=== PATIENT | female | born 1990 | race Caucasian/White ===

== ENCOUNTER 2016-07-19 21:10 | Emergency (ER) | payer MEDICAID ==
[~2016-07-19] VITALS: Ht 162.6 cm; Wt 83.0 kg
[2016-07-19 21:23] VITALS: BP 142/82
[2016-07-19] MEDS ORDERED: diphenhydrAMINE 50 MG CAP PO ONE (22:35)
[2016-07-19] MEDS ORDERED: DEXAMETHASONE 4 MG TAB PO ONE (22:35)
[2016-07-19] MEDS ORDERED: METOCLOPRAMIDE 10 MG TAB PO ONE (22:35)
--- NOTE | 2016-07-19 23:28 | NUR ---
Dr. Fry re-evaluating patient
[2016-07-19 23:35] VITALS: BP 117/65
--- NOTE | 2016-07-19 23:35 | NUR ---
"I feel so much better, just a little sleepy." Patient discharged with v/s stable. Written and verbal after care instructions given and explained. Patient alert, oriented and verbalized understanding of instructions. Ambulatory with steady gait. All questions addressed prior to discharge. ID band removed. Patient advised to follow up with PMD. Rx of Motrin and Zofran given. Patient educated on indication of medication including possible reaction and side effects. Opportunity to ask questions provided and answered.
== END 2016-07-19 23:35 | disposition home or self-care (01) ==
LOC: MED 21:10
DX: R51 Headache (principal); H53.8 Other visual disturbances; R42 Dizziness and giddiness
CPT/HCPCS: 70450; 99284; J8597; Q0163

== ENCOUNTER 2018-02-01 13:15 | Emergency (ER) | payer MEDICAID ==
[~2018-02-01] VITALS: Ht 160 cm; Wt 83.9 kg
[2018-02-01 13:50] VITALS: BP 178/115
[2018-02-01] MEDS ORDERED: KETOROLAC 60 MG/2 ML VIAL IM ONE (16:20)
[2018-02-01] MEDS ORDERED: ONDANSETRON 4 MG ODT PO ONE (16:20)
[2018-02-01] MEDS ORDERED: ACETAMINOPHEN EXTRA STRENGTH 500 MG TAB PO ONE (16:20)
[2018-02-01 16:51] VITALS: BP 158/98
== END 2018-02-01 16:51 | disposition home or self-care (01) ==
LOC: MED 13:15
DX: J11.1 Influenza due to unidentified influenza virus with other respiratory manifestations (principal)
CPT/HCPCS: 71045; 81002; 81025; 96372; 99283; J1885; Q0092; Q0162

== ENCOUNTER 2019-09-22 22:17 | Emergency (ER) | payer MEDICAID ==
[~2019-09-22] VITALS: Ht 162.6 cm; Wt 86.6 kg
[2019-09-22 22:30] VITALS: BP 197/128
--- NOTE | 2019-09-22 22:35 | NUR ---
AMBULATED TO BED 12 WITH STEADY GAIT. URINE AT BEDSIDE
--- NOTE | 2019-09-22 22:59 | NUR ---
PT C/O INTERMITTENT RLQ PAIN X 1 WEEK, WITH WORSEING PAIN OVER LAST 2 DAYS. PT DENIES N/V/D. DENIES ANY PAIN WITH URINATION. BED IN LOWEST POSTION AND SIDERAIL UP X 1 NKA NO MED HX
--- NOTE | 2019-09-22 23:00 | NUR ---
PT TAKEN TO CT VIA WHEELCHAIR
--- NOTE | 2019-09-22 23:08 | NUR ---
PT RETURN FROM CT
--- NOTE | 2019-09-22 23:09 | NUR ---
LAB AT BEDSIDE
[2019-09-22 23:19] LABS: BASOPHILS # (AUTO) 0.1 K/uL (0.00-0.22); BASOPHILS % (AUTO) 0.7 % (0.0-2.0); EOSINOPHILS # (AUTO) 0.1 K/uL (0-0.4); EOSINOPHILS % (AUTO) 1.5 % (0.0-4.0); HEMATOCRIT 40.6 % (36-48); HEMOGLOBIN 13.4 g/dL (12.0-16.0); LYMPHOCYTES # (AUTO) 2.3 K/uL (2.5-16.5); LYMPHOCYTES % (AUTO) 31.5 % (20.5-51.1); MEAN CORPUSCULAR HEMOGLOBIN 29 pg (27-31); MEAN CORPUSCULAR HGB CONC 33 g/dL (33-37); MEAN CORPUSCULAR VOLUME 86.6 fL (80-94); MONOCYTES # (AUTO) 0.5 K/uL (0.8-1.0); MONOCYTES % (AUTO) 7.6 % (1.7-9.3); NEUTROPHILS # (AUTO) 4.2 K/uL (1.8-7.7); NEUTROPHILS % (AUTO) 58.7 % (42.2-75.2); PLATELET COUNT (AUTO) 284 K/uL (140-450); RED BLOOD CELL COUNT(AUTO) 4.68 MIL/uL (4.20-5.40); RED CELL DISTRIBUTION WIDTH 14.4 % (11.6-13.7); WHITE BLOOD COUNT (AUTO) 7.2 K/uL (4.8-10.8)
[2019-09-22 23:34] LABS: ALBUMIN 3.9 g/dL (3.4-5.0); ANION GAP 11.8 (8-16); CARBON DIOXIDE 31.4 mmol/L (21-32); POTASSIUM 3.2 mmol/L (3.5-5.1); TOTAL BILIRUBIN 0.4 mg/dL (0.0-1.0)
[2019-09-22] MEDS ORDERED: HYDROcodone/APAP 5/325 MG 1 TAB TAB PO ONE (23:45)
[2019-09-23] MEDS ORDERED: amLODIPine 5 MG TAB PO ONE (00:10)
--- NOTE | 2019-09-23 00:10 | NUR ---
COVERING FOR PRIMARY RN FOR LUNCH RELIEF---- PT BP 216/136. PT HAS C/O MILD MYERS AND DIZZINESS. MICHELLE ARREOLA NOTIFIED.
--- NOTE | 2019-09-23 01:33 | NUR ---
Ultrasound at bedside.
--- NOTE | 2019-09-23 01:50 | NUR ---
ADVISED VITOR HUSTON OF PT'S CURRENT BP, NO NEW ORDERS AT THIS TIME
[2019-09-23 02:52] VITALS: BP 188/121
--- NOTE | 2019-09-23 02:53 | NUR ---
Patient discharged with v/s stable. Written and verbal after care instructions given and explained. Patient alert, oriented and verbalized understanding of instructions. Ambulatory with steady gait. All questions addressed prior to discharge. ID band removed. Patient advised to follow up with PMD. Rx of TYLENOL AND PEPCID given. Patient educated on indication of medication including possible reaction and side effects. Opportunity to ask questions provided and answered.
== END 2019-09-23 02:53 | disposition home or self-care (01) ==
LOC: MED 22:17
DX: R10.32 Left lower quadrant pain (principal); E87.6 Hypokalemia; R03.0 Elevated blood-pressure reading, without diagnosis of hypertension; M48.00 Spinal stenosis, site unspecified; R16.0 Hepatomegaly, not elsewhere classified
CPT/HCPCS: 36415; 74176; 76856; 80053; 81002; 81025; 83690; 85025; 93976; 99285; Q0092; 99284

== ENCOUNTER 2022-02-05 19:46 | Emergency (ER) | payer MEDICAID ==
[~2022-02-05] VITALS: Ht 162.6 cm; Wt 81.6 kg
[2022-02-05 20:02] VITALS: BP 160/108
--- NOTE | 2022-02-05 20:16 | NUR ---
PATIENT PROVIDED URINE AND PLACED IN LOBBY
[2022-02-05] MEDS ORDERED: IBUPROFEN 600 MG TAB PO ONE (22:05)
[2022-02-05] MEDS ORDERED: ACETAMINOPHEN EXTRA STRENGTH 500 MG TAB PO ONE (22:05)
[2022-02-05 22:37] LABS: BASOPHILS # (AUTO) 0.1 K/uL (0.00-0.22); BASOPHILS % (AUTO) 0.9 % (0.0-2.0); EOSINOPHILS # (AUTO) 0.1 K/uL (0-0.4); EOSINOPHILS % (AUTO) 1.2 % (0.0-4.0); HEMATOCRIT 42.4 % (36-48); HEMOGLOBIN 13.9 g/dL (12.0-16.0); LYMPHOCYTES # (AUTO) 2.6 K/uL (2.5-16.5); LYMPHOCYTES % (AUTO) 31.3 % (20.5-51.1); MEAN CORPUSCULAR HEMOGLOBIN 28 pg (27-31); MEAN CORPUSCULAR HGB CONC 33 g/dL (33-37); MEAN CORPUSCULAR VOLUME 86.2 fL (80-94); MONOCYTES # (AUTO) 0.6 K/uL (0.8-1.0); MONOCYTES % (AUTO) 7.3 % (1.7-9.3); NEUTROPHILS # (AUTO) 4.9 K/uL (1.8-7.7); NEUTROPHILS % (AUTO) 59.3 % (42.2-75.2); PLATELET COUNT (AUTO) 338 K/uL (140-450); RED BLOOD CELL COUNT(AUTO) 4.93 MIL/uL (4.20-5.40); RED CELL DISTRIBUTION WIDTH 14.6 % (11.6-13.7); WHITE BLOOD COUNT (AUTO) 8.3 K/uL (4.8-10.8)
[2022-02-05 23:07] LABS: ALBUMIN 3.8 g/dL (3.4-5.0); ANION GAP 8.9 (8-16); ASPARTATE AMINOTRANSFERASE 13 U/L (15-37); CARBON DIOXIDE 36.7 mmol/L (21-32); CHLORIDE 102 mmol/L (98-107); GFR ARICAN-AMERICAN 82 mL/min (>90); GLUCOSE 101 mg/dL (74-106); POTASSIUM 3.6 mmol/L (3.5-5.1); SODIUM SERUM 144 mmol/L (136-145); TOTAL BILIRUBIN 0.2 mg/dL (0.0-1.0); UREA NITROGEN, BLOOD 18 mg/dL (7-18)
[2022-02-05] MEDS ORDERED: IBUP-2213 PO (23:48)
[2022-02-06 00:07] VITALS: BP 160/108
== END 2022-02-06 00:07 | disposition home or self-care (01) ==
LOC: MED 19:46
DX: R07.9 Chest pain, unspecified (principal); I10 Essential (primary) hypertension; R51.9 Headache, unspecified; Z79.899 Other long term (current) drug therapy
CPT/HCPCS: 36415; 71045; 80053; 81002; 81025; 84484; 85025; 93005; 99285